=== PATIENT | female | born 1970 | race Hispanic/Latino ===

== ENCOUNTER 2018-02-01 21:26 | Observation (INO) | payer BC, OTHER ==
[2018-02-01 21:53] LABS: Absolute Lymphocytes (CBC) 4.1 K/uL (0.7-4.9); Absolute Monocytes 0.6 K/uL (0.1-1.3); Absolute Neutrophil 3.5 K/uL (1.8-8.0); Eosinophils % 2.2 % (0-4.4); MCV 84.2 fL (80-100); MPV 8.4 fL (7.6-11.3); Monocytes % 7.2 % (3.3-12.3); RBC Red Blood Cell Count 5.11 M/uL (3.86-4.86)
[2018-02-01 21:56] LABS: Protime INR 0.99
[2018-02-01] MEDS ORDERED: ENOXAPARIN 80 MG/0.8 ML SQ ONE (22:07)
[2018-02-01] MEDS ORDERED: NITROGLYCERIN/D5W 50 MG/250 ML BTL IV ONE (22:07)
[2018-02-01 22:13] LABS: ALT/SGPT 47 U/L (12-78); AST/SGOT 27 U/L (15-37); Albumin 4.3 g/dL (3.4-5.0); Alkaline Phosphatase 113 U/L (45-117); BUN Blood Urea Nitrogen 11 mg/dL (7-18); Bicarbonate 27 mmol/L (21-32); Bilirubin Direct < 0.1 mg/dL (0-0.2); Bilirubin Total 0.3 mg/dL (0.2-1.0); Glucose Level 96 mg/dL (74-106); NT PRO-BNP 141 pg/mL (<125); Potassium 3.7 mmol/L (3.5-5.1); Protein, Total 7.7 g/dL (6.4-8.2); Sodium Level 142 mmol/L (136-145)
--- NOTE | 2018-02-01 23:40 | ER ---
Nurse's Notes [facility] Name: Caitie Tang Age: 47 yrs Sex: Female : 1970 Arrival Date: 02/01/2018 Time: 21:27 Bed 8 Private MD: Diagnosis: Unstable angina Presentation: 02/01 21:37 Presenting complaint: Patient states: Chest pain that started at 2000 today during a aj stressful event. Patient reports diaphoresis and pain radiating to shoulder blades. Transition of care: patient was not received from another setting of care. Onset of symptoms was February 01, 2018. Risk Assessment: Do you want to hurt yourself or someone else? Patient reports no desire to harm self or others. Initial Sepsis Screen: Does the patient meet any 2 criteria? No. Patient's initial sepsis screen is negative. Does the patient have a suspected source of infection? No. Patient's initial sepsis screen is negative. 21:37 Method Of Arrival: Ambulatory aj 21:37 Acuity: GAYATHRI 3 aj 21:39 Care prior to arrival: Medication(s) given: ASA, 325 mg, Nitroglycerin, 0.4 mg SL x 3. aj Triage Assessment: 21:38 General: Appears in no apparent distress. uncomfortable, Behavior is calm, cooperative, aj appropriate for age. Pain: Complains of pain in chest. Neuro: Level of Consciousness is awake, alert, obeys commands, Oriented to person, place, time, situation, Appropriate for age. Cardiovascular: Reports chest pain, diaphoresis, nausea, Capillary refill < 3 seconds in bilateral fingers Patient's skin is warm and dry. Respiratory: Airway is patent Respiratory effort is even, unlabored, Respiratory pattern is regular, symmetrical. Derm: Skin is intact, is healthy with good turgor, Skin is pink, warm \T\ dry. normal. 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 N/A - Irregular menses bp Historical: - Allergies: 02/01 21:38 Sulfa (Sulfonamide Antibiotics); aj 21:38 Adhesives; aj - Home Meds: 22:01 albuterol sulfate 2.5 mg /3 mL (0.083 %) Nebulizer nebu 3 mL [Active]; alprazolam 1 mg ak1 Oral tab 1 tab 3 times per day [Active]; amlodipine 5 mg tab 1 tab once daily [Active]; aspirin 81 mg Oral chew 1 tab once daily [Active]; atorvastatin 80 mg oral tab 1 tab once daily [Active]; BRILINTA 60 mg oral tab 1 tab 2 times per day [Active]; budesonide oral 0.25mg/2mL- 2 times daily oral [Active]; carvedilol 6.25 mg oral tab 1 tab 2 times per day [Active]; Chantix Starting Month Box 0.5 mg (11)- 1 mg (42) oral DsPk [Active]; clindamycin HCl 300 mg Oral cap 1 cap every 6 hours [Active]; clonazepam 2 mg Oral tab 1 tab 3 times per day [Active]; hydrocodone-acetaminophen 10-325 mg Oral tab 1 tab every 4 hours [Active]; hydroxyzine pamoate 25 mg Oral cap 1 cap 2 times daily [Active]; isosorbide mononitrate 120 mg Oral Tb24 1 tab once daily [Active]; morphine 15 mg Oral tab 0.5 tabs every 4 hours for Pain [Active]; morphine 15 mg Oral TbER 1 tab every 8 hours [Active]; nitroglycerin 0.4 mg SL subl 1 tab [Active]; ondansetron 4 mg oral TbDL 1 tabs every 8 hours [Active]; pantoprazole 40 mg oral TbEC 1 tab once daily [Active]; prazosin 1 mg Oral cap [Active]; prednisone 10 mg Oral tab 1 tab 3 times per day [Active]; quetiapine 200 mg oral tab 1 tab 2 times per day [Active]; sertraline 100 mg oral tab 1 tab once daily [Active]; triamcinolone acetonide 0.025 % Topical crea 2 times per day [Active]; - PMHx: 21:38 Myocardial infarction; aj - PSHx: 21:38 CABG; Heart stents; aj - Immunization history:: Adult Immunizations up to date. - Social history:: Smoking status: Patient uses tobacco products, smokes one-half pack cigarettes per day, Patient uses alcohol, occasionally. - Ebola Screening: : Patient negative for fever greater than or equal to 101.5 degrees Fahrenheit, and additional compatible Ebola Virus Disease symptoms Patient denies exposure to infectious person Patient denies travel to an Ebola-affected area in the 21 days before illness onset No symptoms or risks identified at this time. Screenin:48 Abuse screen: Denies threats or abuse. Denies injuries from another. Nutritional ak1 screening: No deficits noted. Tuberculosis screening: No symptoms or risk factors identified. Fall Risk None identified. Assessment: 21:48 General: Appears in no apparent distress. Behavior is calm, cooperative, drowsy. Pain: ak1 Pain radiates to thoracic area Pain began 2 hours ago. Neuro: No deficits noted. Cardiovascular: Reports chest pain. Respiratory: No deficits noted. GI: No signs and/or symptoms were reported involving the gastrointestinal system. : No signs and/or symptoms were reported regarding the genitourinary system. EENT: No signs and/or symptoms were reported regarding the EENT system. Derm: No signs and/or symptoms reported regarding the dermatologic system. 23:30 Reassessment: PT CHANGED TO NTG PASTE FROM NTG GTT, REMAINS CP FREE. TO BE ADMITTED TO [facility]. Vital Signs: 21:40 BP 141 / 85; Pulse 65; Resp 17; Temp 96.7; Pulse Ox 99% on R/A; Weight 81.65 kg; Height aj 5 ft. 4 in. (162.56 cm); 22:00 BP 138 / 108; Pulse 61; Resp 16; Pulse Ox 98% ; bp 23:00 BP 137 / 78; Pulse 52; Resp 22; Pulse Ox 94% ; bp 07 00:00 BP 147 / 80; Pulse 52; Resp 23; Pulse Ox 94% ; bp 00:30 BP 129 / 56; Pulse 50; Resp 23; Pulse Ox 95% ; bp 02/01 21:40 Body Mass Index 30.90 (81.65 kg, 162.56 cm) ED Course: 02/01 21:27 Patient arrived in ED. do 21:33 Carlos Drew, RN is Primary Nurse. bp 21:37 Triage completed. aj 21:38 Osito Upton PA is PHCP. jr8 21:38 Álvaro Santo MD is Attending Physician. jr8 21:40 Arm band placed on left wrist. Patient placed in an exam room. EKG completed in triage. aj Results shown to MD. 21:48 Patient has correct armband on for positive identification. Placed in gown. Bed in low ak1 position. Call light in reach. Side rails up X 1. Adult w/ patient. monitoring engineer on. Pulse ox on. NIBP on. Door closed. Warm blanket given. 21:48 Inserted saline lock: 20 gauge in right antecubital area, using aseptic technique. ak1 Blood collected. 21:52 Patient maintains SpO2 saturation greater than 95% on room air. ak1 21:55 XRAY Chest (1 view) In Process Unspecified. EDMS 23:39 Chacha Evans MD is Hospitalizing Provider. jr8 02/02 00:45 No provider procedures requiring assistance completed. Patient admitted, IV remains in bp place. Administered Medications: Discontinued: Nitro Drip - (Nitroglycerin 50 mg, D5W 250 ml) IV at 5 mcg/min continuous; titrate until desired hemodynamic response. 02/01 22:10 Drug: Lovenox 1 mg/kg Route: Sub-Q; Site: right lower abdomen; bp 22:12 Follow up: Response: No adverse reaction bp 22:12 Drug: Nitro Drip - (Nitroglycerin 50 mg, D5W 250 ml) Route: IV; Rate: 5 mcg/min; Site: bp right antecubital; 23:55 Follow up: IV Status: Order to discontinue infusion bp 23:50 Drug: Nitroglycerin Ointment 2 % 1 inches Route: Transdermal; Site: anterior chest wall;bp Outcome: 23:39 Decision to Hospitalize by Provider. jr8 02/02 00:51 Admitted to Tele accompanied by tech, family with patient, via wheelchair, room 228, bp with chart. Condition: stable Instructed on the need for admit. 00:51 Patient left the ED. bp Signatures: Dispatcher [employer] EDLA Juana Hess RN RN aj Roszak, Josh, PA PA jr8 Dilia Hinojosa RN RN akDeanna Rowell Brian RN RN bp Corrections: (The following items were deleted from the chart) 02/01 21:39 21:37 Care prior to arrival: None. skip valdivia
--- NOTE | 2018-02-01 23:40 | EDPHYS ---
Physician Documentation [facility] Name: Caitie Tang Age: 47 yrs Sex: Female : 1970 Arrival Date: 02/01/2018 Time: 21:27 Bed 8 Private MD: ED Physician Álvaro Santo HPI: 02/01 22:49 This 47 yrs old Female presents to ER via Ambulatory with complaints of Chest jr8 Pain. 22:49 The patient or guardian reports chest pain that is located primarily in the substernal jr8 area. Onset: acutely, today. The pain radiates to the left arm. Associated signs and symptoms: Pertinent positives: diaphoresis. The chest pain is described as a pressure. Duration: The patient or guardian reports a single episode, that is still ongoing. Modifying factors: The symptoms are alleviated by NTG, X3. Severity of pain: At its worst the pain was moderate in the emergency department the pain is unchanged. The patient has experienced similar episodes in the past, a few times. The patient has not recently seen a physician. Patient with extensive cardiac history. Stated that she had stressful night tonight which caused her to have chest pain. Stated that she took a total of 3 nitro with only mild relief. Pain coming back now . 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 - Irregular menses bp Historical: - Allergies: 02/01 21:38 Sulfa (Sulfonamide Antibiotics); aj 21:38 Adhesives; aj - Home Meds: 22:01 albuterol sulfate 2.5 mg /3 mL (0.083 %) Nebulizer nebu 3 mL [Active]; alprazolam 1 mg ak1 Oral tab 1 tab 3 times per day [Active]; amlodipine 5 mg tab 1 tab once daily [Active]; aspirin 81 mg Oral chew 1 tab once daily [Active]; atorvastatin 80 mg oral tab 1 tab once daily [Active]; BRILINTA 60 mg oral tab 1 tab 2 times per day [Active]; budesonide oral 0.25mg/2mL- 2 times daily oral [Active]; carvedilol 6.25 mg oral tab 1 tab 2 times per day [Active]; Chantix Starting Month Box 0.5 mg (11)- 1 mg (42) oral DsPk [Active]; clindamycin HCl 300 mg Oral cap 1 cap every 6 hours [Active]; clonazepam 2 mg Oral tab 1 tab 3 times per day [Active]; hydrocodone-acetaminophen 10-325 mg Oral tab 1 tab every 4 hours [Active]; hydroxyzine pamoate 25 mg Oral cap 1 cap 2 times daily [Active]; isosorbide mononitrate 120 mg Oral Tb24 1 tab once daily [Active]; morphine 15 mg Oral tab 0.5 tabs every 4 hours for Pain [Active]; morphine 15 mg Oral TbER 1 tab every 8 hours [Active]; nitroglycerin 0.4 mg SL subl 1 tab [Active]; ondansetron 4 mg oral TbDL 1 tabs every 8 hours [Active]; pantoprazole 40 mg oral TbEC 1 tab once daily [Active]; prazosin 1 mg Oral cap [Active]; prednisone 10 mg Oral tab 1 tab 3 times per day [Active]; quetiapine 200 mg oral tab 1 tab 2 times per day [Active]; sertraline 100 mg oral tab 1 tab once daily [Active]; triamcinolone acetonide 0.025 % Topical crea 2 times per day [Active]; - PMHx: 21:38 Myocardial infarction; aj - PSHx: 21:38 CABG; Heart stents; aj - Immunization history:: Adult Immunizations up to date. - Social history:: Smoking status: Patient uses tobacco products, smokes one-half pack cigarettes per day, Patient uses alcohol, occasionally. - Ebola Screening: : Patient negative for fever greater than or equal to 101.5 degrees Fahrenheit, and additional compatible Ebola Virus Disease symptoms Patient denies exposure to infectious person Patient denies travel to an Ebola-affected area in the 21 days before illness onset No symptoms or risks identified at this time. ROS: 22:49 Eyes: Negative for injury, pain, redness, and discharge, ENT: Negative for injury, jr8 pain, and discharge, Neck: Negative for injury, pain, and swelling, Respiratory: Negative for shortness of breath, cough, wheezing, and pleuritic chest pain, Abdomen/GI: Negative for abdominal pain, nausea, vomiting, diarrhea, and constipation, Back: Negative for injury and pain, MS/Extremity: Negative for injury and deformity, Skin: Negative for injury, rash, and discoloration, Neuro: Negative for headache, weakness, numbness, tingling, and seizure. 22:49 Cardiovascular: Positive for chest pain, Negative for edema, orthopnea, palpitations, paroxysmal nocturnal dyspnea. Exam: 22:49 Eyes: Pupils equal round and reactive to light, extra-ocular motions intact. Lids and jr8 lashes normal. Conjunctiva and sclera are non-icteric and not injected. Cornea within normal limits. Periorbital areas with no swelling, redness, or edema. ENT: Nares patent. No nasal discharge, no septal abnormalities noted. Tympanic membranes are normal and external auditory canals are clear. Oropharynx with no redness, swelling, or masses, exudates, or evidence of obstruction, uvula midline. Mucous membranes moist. Neck: Trachea midline, no thyromegaly or masses palpated, and no cervical lymphadenopathy. Supple, full range of motion without nuchal rigidity, or vertebral point tenderness. No Meningismus. Cardiovascular: Regular rate and rhythm with a normal S1 and S2. No gallops, murmurs, or rubs. Normal PMI, no JVD. No pulse deficits. Respiratory: Lungs have equal breath sounds bilaterally, clear to auscultation and percussion. No rales, rhonchi or wheezes noted. No increased work of breathing, no retractions or nasal flaring. Abdomen/GI: Soft, non-tender, with normal bowel sounds. No distension or tympany. No guarding or rebound. No evidence of tenderness throughout. Back: No spinal tenderness. No costovertebral tenderness. Full range of motion. Skin: Warm, dry with normal turgor. Normal color with no rashes, no lesions, and no evidence of cellulitis. MS/ Extremity: Pulses equal, no cyanosis. Neurovascular intact. Full, normal range of motion. Neuro: Awake and alert, GCS 15, oriented to person, place, time, and situation. Cranial nerves II-XII grossly intact. Motor strength 5/5 in all extremities. Sensory grossly intact. Cerebellar exam normal. Normal gait. Vital Signs: 21:40 BP 141 / 85; Pulse 65; Resp 17; Temp 96.7; Pulse Ox 99% on R/A; Weight 81.65 kg; Height aj 5 ft. 4 in. (162.56 cm); 22:00 BP 138 / 108; Pulse 61; Resp 16; Pulse Ox 98% ; bp 23:00 BP 137 / 78; Pulse 52; Resp 22; Pulse Ox 94% ; bp 02/02 00:00 BP 147 / 80; Pulse 52; Resp 23; Pulse Ox 94% ; bp 00:30 BP 129 / 56; Pulse 50; Resp 23; Pulse Ox 95% ; bp 02/01 21:40 Body Mass Index 30.90 (81.65 kg, 162.56 cm) aj MDM: 02/01 21:38 Patient medically screened. 23:37 The patient was not given aspirin in the Emergency Department. Patient reports taking 8 aspirin within the past 24 hours. Data reviewed: vital signs, nurses notes, lab test result(s), EKG, radiologic studies, plain films. Data interpreted: Pulse oximetry: on room air is 99 %. Interpretation: normal. Counseling: I had a detailed discussion with the patient and/or guardian regarding: the historical points, exam findings, and any diagnostic results supporting the discharge/admit diagnosis, lab results, radiology results, the need for further work-up and treatment in the hospital. 23:40 ED course: Pain free after being on nitro drip. Will d/c and transition to nitro paste .02/01 21:38 Order name: Basic Metabolic Panel; Complete Time: 22:21 02/01 21:38 Order name: CBC with Diff; Complete Time: 21:56 02/01 21:38 Order name: LFT's; Complete Time: 22:21 02/01 21:38 Order name: Magnesium; Complete Time: 22:21 02/01 21:38 Order name: NT PRO-BNP; Complete Time: 22:21 02/01 21:38 Order name: PT-INR; Complete Time: 22:06 02/01 21:38 Order name: Troponin (emerg Dept Use Only); Complete Time: 22:21 02/01 21:38 Order name: XRAY Chest (1 view); Complete Time: 23:45 02/01 21:38 Order name: EKG; Complete Time: 21:39 02/01 21:38 Order name: Cardiac monitoring; Complete Time: 21:47 02/01 21:38 Order name: EKG - Nurse/Tech; Complete Time: 21:47 02/01 21:38 Order name: IV Saline Lock; Complete Time: 21:47 02/01 21:38 Order name: Labs collected and sent; Complete Time: 21:47 02/01 21:38 Order name: O2 Per Protocol; Complete Time: 21:47 02/01 21:38 Order name: O2 Sat Monitoring; Complete Time: 21:47 Administered Medications: Discontinued: Nitro Drip - (Nitroglycerin 50 mg, D5W 250 ml) IV at 5 mcg/min continuous; titrate until desired hemodynamic response. 22:10 Drug: Lovenox 1 mg/kg Route: Sub-Q; Site: right lower abdomen; bp 22:12 Follow up: Response: No adverse reaction bp 22:12 Drug: Nitro Drip - (Nitroglycerin 50 mg, D5W 250 ml) Route: IV; Rate: 5 mcg/min; Site: bp right antecubital; 23:55 Follow up: IV Status: Order to discontinue infusion bp 23:50 Drug: Nitroglycerin Ointment 2 % 1 inches Route: Transdermal; Site: anterior chest wall;bp Disposition: 02/02 19:08 Co-signature as Attending Physician, Álvaro Santo MD. Disposition: 02/01/18 23:39 Hospitalization ordered by Chacha Evans for Observation. Preliminary diagnosis is Unstable angina. - Bed requested for Telemetry/MedSurg (observation). - Status is Observation. bp - Condition is Stable. - Problem is new. - Symptoms have improved. UTI on Admission? No Signatures: Dispatcher [employer] EDMS Chloe Grover RN RN Juana Hess RN RN aj Roszak, Josh, PA PA jr8 Dilia Hinojosa RN RN [facility] Álvaro Santo MD MD Carlos Drew RN RN bp Corrections: (The following items were deleted from the chart) 00:07 02/01 23:39 Hospitalization Ordered by Chacha Evans MD for Observation. Preliminary mw diagnosis is Unstable angina. Bed requested for Telemetry/MedSurg (observation). Status is Observation. Condition is Stable. Problem is new. Symptoms have improved. UTI on Admission? No. jr8 02/02 00:51 00:07 02/01/2018 23:39 Hospitalization Ordered by Chacha Evans MD for Observation. bp Preliminary diagnosis is Unstable angina. Bed requested for Telemetry/MedSurg (observation). Status is Observation. Condition is Stable. Problem is new. Symptoms have improved. UTI on Admission? No. mw
--- NOTE | 2018-02-01 23:41 | RAD REPORT ---
EXAM DESCRIPTION: RAD - Chest Single View - 02/01/2018 9:55 pm CLINICAL HISTORY: Chest pain COMPARISON: October 2009 TECHNIQUE: AP portable chest image was obtained 2145 hours . FINDINGS: Lungs are clear. Heart and vasculature are normal. No measurable pleural effusion and no p neumothorax. No gross bony abnormality seen. No acute aortic findings suspected. IMPRESSION: No acute cardiopulmonary process. No significant interval change.
[2018-02-01] MEDS ORDERED: NITROGLYCERIN 1 GM PKT TD ONE (23:43)
[2018-02-02] MEDS ORDERED: ACETAMINOPHEN 500 MG TAB PO PRN (00:51)
[2018-02-02] MEDS ORDERED: NITROGLYCERIN 0.4 MG/TAB SL PRN ×2 (00:51→04:38)
[2018-02-02] MEDS ORDERED: ZOLPIDEM TARTRATE 5 MG TABLET PO ONE (01:49)
[2018-02-02] MEDS ORDERED: ZOLPIDEM TARTRATE 5 MG TABLET ONE (02:15)
[2018-02-02 03:49] LABS: Urine Appearance CLEAR; Urine Bilirubin NEGATIVE (NEG); Urine Blood NEGATIVE (NEG); Urine Color YELLOW; Urine Glucose NEGATIVE (NEG); Urine Protein NEGATIVE (NEG); Urine Specific Gravity 1.015 (1.005-1.030); Urine Urobilinogen 0.2 mg/dL (0.2-1.0)
[2018-02-02 03:50] LABS: Urine Microscopic Reflex NO UMIC
[2018-02-02] MEDS ORDERED: ALPRAZOLAM 1 MG TABLET PO PRN (04:38)
--- NOTE | 2018-02-02 04:38 | P.HP ---
Certification for Inpatient Patient admitted to: Observation With expected LOS: <2 Midnights Practitioner: I am a practitioner with admitting privileges, knowledge of patient current condition, hospital course, and medical plan of care. Services: Services provided to patient in accordance with Admission requirements found in Title 42 Section 412.3 of the Code of Federal Regulations Patient History Date of Service: 02/01/18 Reason for admission: chest pain History of Present Illness: Ms Tang is a 47 years old woman with history of CAD, DE, S/P stenting and CABG, she has strong family history of cardiovascular disease, who is from [facility]. She is visiting his son, who has PTSD. The patient today had a stressful situation with her son, when suddenly start feeling chest pain, around 20:00. The pain was pressure like, substernal, 10/10 of intensity, similar to previous one, when she had her heart attack. She denied nausea or vomiting, but she become diaphoretic. She tried nitro SL x 3 and her pain did not subsided. Then she came to ED, was started on Nitro drip. Subsequently, she start noticing that her pain improved. Currently she is pain free. Initial Trop I is negative. EKG shows no ST-T abnormalities. Allergies adhesive Allergy (Verified 02/02/18 00:20) Itching Sulfa (Sulfonamide Antibiotics) Allergy (Verified 02/02/18 00:20) Itching Home medications list reviewed: Yes Home Medications: ALPRAZolam [Xanax] 1 mg PO TID PRN 02/02/18 Albuterol Neb [Proventil 0.083% Neb Soln] 2.5 mg IH DIRECTED PRN 02/02/18 Amlodipine [Norvasc] 5 mg PO DAILY 02/02/18 Aspirin Chewable [Aspirin Chewable*] 1 tab PO DAILY 02/02/18 Atorvastatin Calcium [Lipitor] 1 tab PO BEDTIME 02/02/18 Budesonide [Pulmicort] 0.25 mg PO BID 02/02/18 Carvedilol [Coreg] 1 tab PO BID 02/02/18 Hydrocodone 10/APAP 325 [[place] 10/325] 1 tab PO BID 02/02/18 Isosorbide Mononitrate [Isosorbide Mononitrate ER] 1 tab PO BID 02/02/18 Losartan Potassium 1 tab PO DAILY 02/02/18 Morphine Sulfate [Morphine Sulfate Cr] 1 tab PO Q4H PRN 02/02/18 Nitroglycerin 1 tab SL DIRECTED PRN 02/02/18 Ondansetron [Zofran Odt] 1 tab PO Q8H PRN 02/02/18 Pantoprazole [Protonix Tab] 1 tab PO DAILY 02/02/18 Prazosin HCl [Minipress] 1 tab PO BEDTIME 02/02/18 Quetiapine [Seroquel] 200 mg PO BID 02/02/18 Sertraline [Zoloft] 1 tab PO DAILY 02/02/18 Ticagrelor [Brilinta] 1 tab PO BID 02/02/18 Triamcinolone 0.025% Crm [Kenalog 0.025% Cream] 1 appl TOP DIRECTED PRN 02/02 Varenicline Tartrate [Chantix] 1 mg PO BID 02/02/18 clonazePAM [Clonazepam] 2 mg PO TID 02/02/18 hydrOXYzine pamoate [Hydroxyzine Pamoate] 1 tab PO Q6H 02/02/18 predniSONE [Deltasone] 1 tab PO TID 02/02/18 - Past Medical/Surgical History Has patient received pneumonia vaccine in the past: Yes -: hypertension -: hypotension -: DE -: UTI -: Vascular disease -: 3x CABG -: Mutiple stents -: Renal artery stent -: bilateral breast lumpectomy - Family History Father -: Heart disease, Other (see notes) Notes: massive heart attack, five stents Mother -: Other (see notes) Notes: vascular disease - Social History Smoking Status: Current every day smoker Counseled patient to stop smoking for: less than 10 minutes Alcohol use: Yes CD- Drugs: Yes Caffeine use: Yes Place of Residence: Home Review of Systems 10-point ROS is otherwise unremarkable Physical Examination - Vital Signs Temperature: 96.4 F Blood Pressure: 146/72 Pulse: 56 Respirations: 20 Pulse Ox (%): 98 - Physical Exam General: Alert, In no apparent distress HEENT: Atraumatic, PERRLA, Mucous membr. moist/pink, EOMI, Sclerae nonicteric Neck: Supple, 2+ carotid pulse no bruit, No LAD, Without JVD or thyroid abnormality Respiratory: Clear to auscultation bilaterally, Normal air movement Cardiovascular: Regular rate/rhythm, Normal S1 S2 Gastrointestinal: Normal bowel sounds, No tenderness Musculoskeletal: No tenderness Integumentary: No rashes Neurological: Normal gait, Normal speech, Normal strength at 5/5 x4 extr, Normal tone, Normal affect Lymphatics: No axilla or inguinal lymphadenopathy - Studies Laboratory Data (last 24 hrs) 02/01/18 21:40: PT 11.7, INR 0.99 02/01/18 21:40: WBC 8.4, Hgb 14.8, Hct 43.0, Plt Count 298 02/01/18 21:40: Sodium 142, Potassium 3.7, BUN 11, Creatinine 0.70, Glucose 96, Magnesium 2.0, Total Bilirubin 0.3, AST 27, ALT 47, Alkaline Phosphatase 113 Assessment and Plan - Problems (Diagnosis) (1) CAD (coronary artery disease) Current Visit: Yes Status: Acute Qualifiers: Coronary Disease-Associated Artery/Lesion type: bypass graft, autologous vein Associated angina: with unstable angina Qualified Code(s): I25.710 - Atherosclerosis of autologous vein coronary artery bypass graft(s) with unstable angina pectoris (2) Chest pain Current Visit: Yes Status: Acute Qualifiers: Chest pain type: precordial pain Qualified Code(s): R07.2 - Precordial pain (3) Dyslipidemia Current Visit: Yes Status: Acute (4) Tobacco abuse Current Visit: Yes Status: Acute - Plan The patient will be admitted to the hospital due to Typical chest pain, relieved with nitro drip. Initial troponin I is negative, EKG without ST-T abnormalities. Will order serial cardiac enzymes and EKG, ECHO, consult cardiology team. Continue ASA, Brilinta, beta slime, statins and full anticoagulation. - Advance Directives Does patient have a Living Will: No Does patient have a Durable POA for Healthcare: No - Code Status/Comfort Care Code Status Assessed: Yes Code Status: Full Code
--- NOTE | 2018-02-02 07:39 | EKG ---
Test Date: 2018-02-01 Test Time: 21:35:28 Stock Control Clerk: BERNIE MEASUREMENT RESULTS: Intervals: Rate: 62 WV: 178 QRSD: 78 QT: 444 QTc: 450 [place]: P: 56 WV: 178 QRS: -4 T: 34 INTERPRETIVE STATEMENTS: Normal sinus rhythm with sinus arrhythmia Possible Left atrial enlargement Low voltage QRS Cannot rule out Anteroseptal infarct, age undetermined Abnormal ECG No previous ECG available for comparison Electronically Signed On 02-02-18 07:38:39 CDT by Win Mckinney
[2018-02-02] MEDS ORDERED: QUETIAPINE 100MG TAB PO SCH (09:00)
[2018-02-02] MEDS ORDERED: TICAGRELOR PO SCH (09:00)
[2018-02-02] MEDS ORDERED: ENOXAPARIN 80 MG/0.8 ML SQ SCH (09:00)
[2018-02-02] MEDS ORDERED: PANTOPRAZOLE 40MG TABLET PO SCH (09:00)
[2018-02-02] MEDS: SERTRALINE HCL 100 MG TAB PO SCH ×2 (09:00→12:32)
[2018-02-02] MEDS ORDERED: ASPIRIN EC 81 MG TAB PO SCH (09:00)
[2018-02-02] MEDS ORDERED: CARVEDILOL 6.25 MG TAB PO SCH (09:00)
--- NOTE | 2018-02-02 13:30 | ECHO ---
HEIGHT: 5 ft 4 in WEIGHT: 172 lb 4 oz DATE OF STUDY: 02/02/[address]: Chacha Sandoval MD 2-DIMENSIONAL: YES M.MODE: YES DOPPLER: YES COLOR FLOW: YES TDS: NO PORTABLE: NO DEFINITY: NO BUBBLE STUDY: NO DIAGNOSIS: CHEST PAIN CARDIAC HISTORY: CATHERIZATION: YES SURGERY: NO PROSTHETIC VALVE: NO PACEMAKER: NO MEASUREMENTS (cm) DIASTOLIC (NORMALS) SYSTOLIC (NORMALS) IVSd 0.9 (0.6-1.2) LA Diam 3.0 (1.9-4.0) LVEF 56% LVIDd 4.3 (3.5-5.7) LVIDs 3.1 (2.0-3.5) %FS 29% LVPWd 1.0 (0.6-1.2) Ao Diam 2.9 (2.0-3.7) 2 DIMENSIONAL ASSESSMENT: RIGHT ATRIUM: NORMAL LEFT ATRIUM: NORMAL RIGHT VENTRICLE: NORMAL LEFT VENTRICLE: NORMAL TRICUSPID VALVE: NORMAL MITRAL VALVE: NORMAL PULMONIC VALVE: NORMAL AORTIC VALVE: NORMAL PERICARDIAL EFFUSION: NONE AORTIC ROOT: NORMAL LEFT VENTRICULAR WALL MOTION: NORMAL DOPPLER/COLOR FLOW: NORMAL COMMENTS: NORMAL 2D ECHOCARDIOGRAM WITH DOPPLER. TECHNOLOGIST: Mika MCDONALD
--- NOTE | 2018-02-02 14:51 | P.SSS ---
Patient History Date of Service: 02/02/18 Reason for admission: chest pain History of Present Illness: Ms Tang is a 47 years old woman with history of CAD, NC, S/P stenting and CABG, she has strong family history of cardiovascular disease, who is from [place] [facility]. She is visiting his son, who has PTSD. The patient today had a stressful situation with her son, when suddenly start feeling chest pain, around 20:00. The pain was pressure like, substernal, 10/10 of intensity, similar to previous one, when she had her heart attack. She denied nausea or vomiting, but she become diaphoretic. She tried nitro SL x 3 and her pain did not subsided. Then she came to ED, was started on Nitro drip. Subsequently, she start noticing that her pain improved. Currently she is pain free. Initial Trop I is negative. EKG shows no ST-T abnormalities. Allergies adhesive Allergy (Verified 02/02/18 00:20) Itching Sulfa (Sulfonamide Antibiotics) Allergy (Verified 02/02/18 00:20) Itching Home Medications: ALPRAZolam [Xanax*] 1 mg PO TID PRN 02/02/18 Albuterol Neb [Proventil 0.083% Neb Soln] 2.5 mg IH DIRECTED PRN 02/02/18 Amlodipine [Norvasc*] 5 mg PO DAILY 02/02/18 Aspirin Chewable [Aspirin Chewable*] 1 tab PO DAILY 02/02/18 Atorvastatin Calcium [Lipitor] 1 tab PO BEDTIME 02/02/18 Budesonide [Pulmicort*] 0.25 mg PO BID 02/02/18 Carvedilol [Coreg*] 1 tab PO BID 02/02/18 Hydrocodone 10/APAP 325 [Celestine 10/325*] 1 tab PO BID 02/02/18 Isosorbide Mononitrate [Isosorbide Mononitrate ER] 1 tab PO BID 02/02/18 Losartan Potassium 1 tab PO DAILY 02/02/18 Morphine Sulfate [Morphine Sulfate Cr] 1 tab PO Q4H PRN 02/02/18 Nitroglycerin 1 tab SL DIRECTED PRN 02/02/18 Ondansetron [Zofran Odt] 1 tab PO Q8H PRN 02/02/18 Pantoprazole [Protonix Tab*] 1 tab PO DAILY 02/02/18 Prazosin HCl [Minipress*] 1 tab PO BEDTIME 02/02/18 Quetiapine [Seroquel*] 200 mg PO BID 02/02/18 Sertraline [Zoloft*] 1 tab PO DAILY 02/02/18 Ticagrelor [Brilinta] 1 tab PO BID 02/02/18 Triamcinolone 0.025% Crm [Kenalog 0.025% Cream*] 1 appl TOP DIRECTED PRN Varenicline Tartrate [Chantix] 1 mg PO BID 02/02/18 clonazePAM [Clonazepam] 2 mg PO TID 02/02/18 hydrOXYzine pamoate [Hydroxyzine Pamoate] 1 tab PO Q6H 02/02/18 predniSONE [Deltasone*] 1 tab PO TID 02/02/18 - Past Medical/Surgical History Has patient received pneumonia vaccine in the past: Yes -: hypertension -: hypotension -: NC -: UTI -: Vascular disease -: 3x CABG -: Mutiple stents -: Renal artery stent -: bilateral breast lumpectomy - Family History Father -: Heart disease, Other (see notes) Notes: massive heart attack, five stents Mother -: Other (see notes) Notes: vascular disease - Social History Smoking Status: Current every day smoker Alcohol use: Yes CD- Drugs: Yes Caffeine use: Yes Place of Residence: Home Review of Systems General: As per HPI Physical Examination - Vital Signs Temperature: 97.2 F Blood Pressure: 159/74 Pulse: 56 Respirations: 20 Pulse Ox (%): 99 - Physical Exam General: Alert, In no apparent distress HEENT: Atraumatic, PERRLA, Mucous membr. moist/pink, EOMI, Sclerae nonicteric Neck: Supple, 2+ carotid pulse no bruit, No LAD, Without JVD or thyroid abnormality Respiratory: Clear to auscultation bilaterally, Normal air movement Cardiovascular: Regular rate/rhythm, Normal S1 S2 Gastrointestinal: Normal bowel sounds, No tenderness Musculoskeletal: No tenderness Integumentary: No rashes Neurological: Normal gait, Normal speech, Normal strength at 5/5 x4 extr, Normal tone, Normal affect Lymphatics: No axilla or inguinal lymphadenopathy - Studies Laboratory Data (last 24 hrs) 02/01/18 21:40: PT 11.7, INR 0.99 02/01/18 21:40: WBC 8.4, Hgb 14.8, Hct 43.0, Plt Count 298 02/01/18 21:40: Sodium 142, Potassium 3.7, BUN 11, Creatinine 0.70, Glucose 96, Magnesium 2.0, Total Bilirubin 0.3, AST 27, ALT 47, Alkaline Phosphatase 113 - Diagnosis (Problem(s)) (1) Chest pain Status: Resolved Qualifiers: Chest pain type: precordial pain Qualified Code(s): R07.2 - Precordial pain (2) CAD (coronary artery disease) Status: Chronic Qualifiers: Coronary Disease-Associated Artery/Lesion type: bypass graft, autologous vein Associated angina: with unstable angina Qualified Code(s): I25.710 - Atherosclerosis of autologous vein coronary artery bypass graft(s) with unstable angina pectoris (3) Dyslipidemia Status: Chronic (4) Tobacco abuse Status: Chronic Treatment Summary: Overall during the hospital stay patient remained stable Patient was initially admitted to the hospital for chest pain. Patient was seen by cardiology here who recommended patient get an echocardiogram done along with a stress test given the history of CAD. Patient however stated that her chest pain has resolved now and she most likely had an anxiety attack because she has been having a lot of stress at the house. She refused to do the stress test or the echocardiogram done at this time. At that point the cardiology recommended the patient to be discharged home and be followed up outpatient for further workup. Troponin x2 was negative. EKG was nonspecific. Patient was educated extensively on the need for outpatient follow up as well in order to get the appropriate test done. If the patient was to come back to the ER with similar symptoms cardiology advice the patient will need a heart catheterization if she is agreeable. Patient should not be refusing any procedures at that time to appropriately diagnose her and treat her properly. Patient was asked to continue taking all her medication as prescribed by her primary care provider no new changes were made. No other complaints to offer. Patient thus was discharged home under stable condition/ - Disposition Disposition: ROUTINE DISCHARGE Condition: GOOD Diet: Regular Activity: Ad debbi
--- NOTE | 2018-02-02 17:25 | CON ---
History Of Present Illness: Mrs. Tang is 47. She came to the hospital with chest pain. She said her blood pressures at home were 298/283. She took 3 nitros. Chest pain did not go away so she cam e to the emergency room. There, she had an electrocardiogram that did not show ST elevation. There looks like there is a previous anteroseptal infarct at least a possible 1, borderline findings for th at. A chest x-ray is normal. Her initial blood pressure when getting here was 141/85. Her troponin s have been normal. The patient has a history of an aortobifemoral bypass and then femoral-popliteal bypasses for severe peripheral vascular disease. According to her, her aorta was totally occluded a nd she had have after that surgery reimplantation of renal arteries with stents. She has had intraco ronary stents and THEN we ordered a stress test on her. She refused to have it done. She had all of her healthcare done at [place]. She is still a resident in [place], [place]. Her records indica te she had coronary bypass surgery, but that is not true. Since being here, troponins are all normal . They are all less than 0.02. BUN, creatinine, and blood counts were normal. Her chest pain is go ne and an echocardiogram does not show any wall motion abnormalities at all. The patient has refused to have a stress test. She also would refuse to have a cardiac cath at this time. She is convinced that she is fine and just needs to go home. She says when she gets very emotionally distraught she will get chest pain. She has had at least 1 other episode maybe several where she has been hospitali zed after emotional distress and did fine then for months afterwards. She is a cigarette smoker, is trying to quit. She does not have diabetes. Medications: Outpatient medications have been sertraline, quetiapine, prednisone, prazosin, Protonix , Zofran, nitroglycerin. She has morphine tablets, isosorbide mononitrate, hydroxyzine, hydrocodone, clonazepam, Chantix, Coreg, budesonide, Brilinta, losartan, atorvastatin, aspirin, amlodipine, albut fredy, alprazolam, triamcinolone. Apparently, she has a son with severe posttraumatic stress disorder . He went into a drug and sales [employer]. She got very upset about it and that is what triggered this h ospital visit. Physical Examination: General: She is 5 feet 4 inches, 172 pounds. Alert, oriented, pleasant, not in distress. Lungs are clear. Heart exam is unremarkable. There is no carotid bruit. Distal pulses are markedly diminish ed but the skin is warm, pink, well perfused. Impression: The patient has severe heart and vascular disease, although it is stable at this point. She has refused to have a stress test. She would be agreeable to having a heart catheterization if she goes home, has more chest pain and comes back, but otherwise would refuse other interventions at this time. I think at this point, we are in a position where we can discharge her per her wishes. I t is not really against medical advice. She is stable enough to consider discharge and encouraged he r not to refuse treatment plans that she has to come back. HARESH/PRANEETH Voice ID: [id number] Report ID: [id number]
[2018-02-02] MEDS ORDERED: ATORVASTATIN 80 MG TAB PO SCH (21:00)
[2018-02-03] MEDS ORDERED: REGADENOSON 0.4 MG/5 ML SYR IV ONE (12:02)
== END 2018-02-02 14:27 | disposition home or self-care (01) ==
LOC: ER 21:26 → ERHOLD 23:47 → 2ND 02-02 00:42
PROVIDERS: ADMIT Internal Medicine; ATTEND Internal Medicine
DX: R07.2 Precordial pain (principal); E78.5 Hyperlipidemia, unspecified; I25.10 Atherosclerotic heart disease of native coronary artery without angina pectoris; Z95.5 Presence of coronary angioplasty implant and graft; Z95.1 Presence of aortocoronary bypass graft; I25.2 Old myocardial infarction; Z79.82 Long term (current) use of aspirin; F17.210 Nicotine dependence, cigarettes, uncomplicated; Z88.2 Allergy status to sulfonamides
CPT/HCPCS: 36415; 71045; 80048; 80061; 80076; 81003; 83735; 83880; 84484; 85025; 85610; 93005; 93306; 94660; 96365; 96366; 96372; 99285; G0378; J1650; J2785

== ENCOUNTER 2024-04-16 06:30 | Day surgery (SDC) | payer OTHER ==
[2024-04-14 11:42] LABS: Absolute Basophils 0.1 K/uL (0-0.5); Absolute Eosinophils 0.1 K/uL (0-0.5); Absolute Lymphocytes (CBC) 2.6 K/uL (0.7-4.9); Absolute Monocytes 0.3 K/uL (0.1-1.3); Absolute Neutrophil 3.1 K/uL (1.8-8.0); Basophils % 0.9 % (0-1.3); Eosinophils % 1.3 % (0-4.4); Hematocrit 43.2 % (36.0-45.0); Hemoglobin 14.7 g/dL (12.0-15.0); Lymphocytes % 42.5 % (15.3-44.8); MCH 30.7 pg (27.0-35.0); MCHC 33.9 g/dL (32.0-36.0); MCV 90.4 fL (80-100); MPV 8.5 fL (7.6-11.3); Monocytes % 5.5 % (3.3-12.3); Neutrophils % 49.8 % (41.7-73.7); Platelets 207 thou/uL (152-406); RBC Red Blood Cell Count 4.78 M/uL (3.86-4.86); Red Cell Distribution Width 13.2 % (12.1-15.2)
[2024-04-14 11:48] LABS: PT Prothrombin Time 11.8 SECONDS (9.4-12.5); Protime INR 1.06
[2024-04-14 11:56] LABS: Anion Gap 4.4 mEq/L (5.0-15.0); Potassium 4.4 mEq/L (3.5-5.1)
--- NOTE | 2024-04-14 12:54 | EKG ---
Test Date: 2024-04-14 Test Time: 11:26:47 Lockstitch Lining Maker: ANGIE MEASUREMENT RESULTS: Intervals: Rate: 54 WV: 182 QRSD: 82 QT: 456 QTc: 432 Geraldine: P: 63 WV: 182 QRS: 10 T: 25 INTERPRETIVE STATEMENTS: Sinus bradycardia Otherwise normal ECG Compared to ECG 02/01/2018 21:35:28 Sinus rhythm no longer present Sinus arrhythmia no longer present Myocardial infarct finding no longer present Electronically Signed On 04-14-24 12:53:42 CDT by Steven Sandra
--- NOTE | 2024-04-14 12:54 | RAD REPORT ---
Procedure: Chest Pa And Lat (2 Views) History: Preop for cardiac catheterization. Hypertension Comparison: 2018 The lungs appear clear of acute infiltrate. No significant pleural effusion noted. The heart is normal size. IMPRESSION: No acute abnormality is displayed.
[2024-04-16] MEDS ORDERED: NA CHLORIDE 0.9% 500 ML ONE (06:39)
[2024-04-16] MEDS ORDERED: NITROGLYCERIN/D5W 50 MG/250 ML BTL IV ONE (06:46)
[2024-04-16] MEDS ORDERED: VERAPAMIL HCL 10 MG/4 ML VIAL IV ONE (06:46)
[2024-04-16] MEDS ORDERED: HEPARIN 10,000 UNIT/10 ML VIAL IV ONE (06:46)
[2024-04-16] MEDS ORDERED: HEPA 1000U/500MLS 2,000 UNIT/1,000 ML BAG IV ONE (06:46)
[2024-04-16] MEDS ORDERED: LIDOCAINE 1% 20 ML MDV ONE ×2 (06:46→07:52)
[2024-04-16] MEDS ORDERED: ATROPINE SULF 1 MG/10 ML SYR IV ONE (06:47)
[2024-04-16] MEDS ORDERED: HEPARIN 5000 UNIT/ML 1 ML VIAL ONE (06:47)
[2024-04-16] MEDS ORDERED: CLOPIDOGREL 75 MG TABLET ONE (06:47)
[2024-04-16] MEDS ORDERED: TICAGRELOR 90 MG TABLET PO ONE (06:48)
[2024-04-16] MEDS ORDERED: FENTANYL CITR 100 MCG/2 ML ONE (06:48)
[2024-04-16] MEDS ORDERED: ASPIRIN 325 MG TAB ONE (06:48)
[2024-04-16] MEDS ORDERED: MIDAZOLAM HCL 2 MG/2 ML INJ ONE (06:49)
[2024-04-16 12:16] VITALS: BP 154/91; O2SAT 100
--- NOTE | 2024-04-20 02:39 | OP ---
Date of Procedure: 04/16/2024 Surgeon: JILLIAN CORTEZ Procedures Performed: 1.Selective coronary angiogram. 2.Left heart catheterization. Indication: Chest pain with abnormal stress test. Access: Right radial artery 6-[place] [employer], closed with TR band. Complications: None. Bleeding: Less than 50 mL. Anesthesia: Total sedation time was 45 minutes, used fentanyl, Versed. Description Of Procedure: After risks, benefits, and alternatives were explained, the patient agreed to procedure and signed informed consent. The patient was [facility], prepped and draped in sterile fashion. Then, I accessed right radial artery using pediatric micropuncture kit, placed a 6-[place] [employer] Slender sheath and took 5-[place] [employer] [place] 4 catheter into the aorti c root, engaged left main, then right coronary artery, took standard views. Catheter was pushed over the wire into the LV, measured the LVEDP. Pullback did not record any gradient, then removed the ca theter and the sheath, placed TR band with good hemostasis. Findings: 1.Left main, large and normal. 2.LAD normal. Normal diagonal branches. 3.There is a ramus intermedius with proximal 50% stenosis. 4.Left circumflex is normal. 5.RCA, 100% occluded proximally with collaterals from the LAD. 6.LVEDP is elevated between 20 and 25 mmHg. Conclusions: 1.Severe RCA stenosis. It is a [employer], but with collaterals from the left, otherwise moderate disease. 2.Elevated LVEDP. Recommendation: Medical management. /PRANEETH Voice ID: [id number] Report ID: [id number]
== END 2024-04-16 12:15 | disposition home or self-care (01) ==
LOC: CCL 06:30
PROVIDERS: ATTEND Internal Medicine
DX: I25.110 Atherosclerotic heart disease of native coronary artery with unstable angina pectoris (principal); I25.82 Chronic total occlusion of coronary artery; I65.29 Occlusion and stenosis of unspecified carotid artery; I10 Essential (primary) hypertension; E78.5 Hyperlipidemia, unspecified; Z87.891 Personal history of nicotine dependence; Z79.82 Long term (current) use of aspirin; Z79.899 Other long term (current) drug therapy; Z88.0 Allergy status to penicillin; Z88.2 Allergy status to sulfonamides; Z88.8 Allergy status to other drugs, medicaments and biological substances; Z82.49 Family history of ischemic heart disease and other diseases of the circulatory system
CPT/HCPCS: 93005; 85025; 80048; 36415; 85610; 85730; 71046; 93458; 76937; C1893; Q9966; J1644; J2001 ×2; J2250; J3010; J7040; 99152; 99153; J0461